=== PATIENT | female | born 1995 | race Caucasian/White ===

== ENCOUNTER 2020-10-05 20:09 | Emergency (ER) | payer OTHER ==
--- NOTE | 2020-10-05 21:01 | ER Document Report ---
ED Medical Screen (RME) - General Stated Complaint: HEAVY VAGINAL BLEEDING FROM MISCARRIAGE Time Seen by Provider: 10/05/20 20:54 Notes: Patient is a 25-year-old female who presents emergency department with a chief complaint of vaginal bleeding. Patient was seen by Dr. Harley on Saturday from [facility] and had a with no heartbeat. She was given Cytotec. Patient states that she continued to have bleeding and cramping. Patient states that she soaked through 1 pad in 10 minutes and another pad in 25 minutes. States that she passed a golf ball size clot. Exam: Soft, nontender abdomen. I have greeted and performed a rapid initial assessment of this patient. A comprehensive ED assessment and evaluation of the patient, analysis of test results and completion of medical decision making process will be conducted by an additional ED providers.
[2020-10-05 21:06] VITALS: BP 145/81
--- NOTE | 2020-10-05 22:02 | RADIOLOGY REPORT (SQ) ---
US PELVIS TRANSVAGINAL HISTORY: 25 years Female vaginal bleeding. Evaluate for retained products. COMPARISON: No relevant studies are available for comparison. Technique: Transvaginal Imaging of the pelvis was performed. Color and spectral imaging was performed. Uterus: The uterus measures 7.4 x 4.9 x 4.4 cm and is retroverted. In the lower uterine segment there is irregular mixed echogenicity fluid and solid material within the endometrium which measures 2.2 x 2.3 cm x 2.6 cm. In the uterine fundus the endometrium measures 10 mm. The echogenic material within the uterus is hypervascular. The cervix is closed and measures 2.4 cm. Right Ovary: The ovary measures 2.9 x 2.0 x 1.8 cm. A dominant follicle is noted which measures 12 mm.. Normal color and spectral doppler waveforms Left Ovary: The left ovary is not clearly seen. Other: No adnexal mass. There is trace free fluid in the cul-de-sac and in the right adnexa. IMPRESSION: Mixed echogenicity, hypervascular material present within the lower uterine segment concerning for retained products of conception. This area measures 2.2 x 2.6 x 2.3 cm.
[2020-10-05 22:18] LABS: ABSOLUTE LYMPHOCYTES (AUTO) 1.7 10^3/uL (0.5-4.7); ABSOLUTE MONOCYTES (AUTO) 0.5 10^3/uL (0.1-1.4); ABSOLUTE NEUT (AUTO) 7.2 10^3/uL (1.7-8.2); BASOPHILS % (AUTO) 0.3 % (0-2); EOSINOPHILS % (AUTO) 0.2 % (0-6); HEMATOCRIT 38.4 % (36.0-47.0); HEMOGLOBIN 13.5 g/dL (12.0-15.5); MEAN CORPUSCULAR HEMOGLOBIN 29.5 pg (27.0-33.4); MEAN CORPUSCULAR HGB CONC 35.2 g/dL (32.0-36.0); MEAN CORPUSCULAR VOLUME 84 fl (80-97); MONOCYTES % (AUTO) 5.3 % (3-13); PLATELET COUNT 292 10^3/uL (150-450); RED BLOOD COUNT 4.59 10^6/uL (3.72-5.28); SEGMENTED NEUTROPHILS % (AUTO) 76.2 % (42-78); TOTAL CELLS COUNTED % (AUTO) 100 %; WHITE BLOOD COUNT 9.5 10^3/uL (4.0-10.5)
[2020-10-05 22:42] LABS: ALBUMIN 4.2 g/dL (3.5-5.0); ALKALINE PHOSPHATASE 81 U/L (38-126); ANION GAP 10 (5-19); ASPARTATE AMINO TRANSFERASE 22 U/L (14-36); BILIRUBIN,TOTAL 0.7 mg/dL (0.2-1.3); BLOOD UREA NITROGEN 7 mg/dL (7-20); CALCIUM 9.6 mg/dL (8.4-10.2); CARBON DIOXIDE 22 mmol/L (22-30); CHLORIDE 103 mmol/L (98-107); GLUCOSE 94 mg/dL (75-110); POTASSIUM 4.4 mmol/L (3.6-5.0); TOTAL PROTEIN 7.1 g/dL (6.3-8.2)
[2020-10-05 23:58] LABS: APPEARANCE,URINE CLEAR; BILIRUBIN,URINE NEGATIVE (NEGATIVE); COLOR,URINE STRAW; GLUCOSE, URINE NEGATIVE (NEGATIVE); KETONES,URINE TRACE mg/dL (NEGATIVE); LEUKOCYTE ESTERASE,URINE NEGATIVE (NEGATIVE); NITRITE,URINE NEGATIVE (NEGATIVE); PROTEIN,URINE NEGATIVE (NEGATIVE); URINE SPECIFIC GRAVITY 1.005; UROBILINOGEN,URINE NEGATIVE mg/dL (<2.0)
== END 2020-10-06 01:15 | disposition left against medical advice (07) ==
LOC: ER 20:09
DX: O03.9 Complete or unspecified spontaneous abortion without complication (principal); Z53.20 Procedure and treatment not carried out because of patient's decision for unspecified reasons
CPT/HCPCS: 36415; 76830; 80053; 81001; 83690; 84702; 85025; 93976; 99281